=== PATIENT | female | born 1935 | race Two or more races ===

== ENCOUNTER 2019-11-05 06:35 | Emergency (ER) | payer MEDICARE, OTHER ==
[~2019-11-05] VITALS: Ht 165.1 cm; Wt 61.2 kg
--- NOTE | 2019-11-05 07:10 | NUR ---
SUN FROM HOME TO ER BED 2. AAOX4. NOT IN RESP DISTRESS. C/O R LOWER BACL PAIN SHOOTING DOWN TO LEG X 2 WEEKS. PT RATES HER PAIN 10/10 SHARP. PT NOTED WITH R LOWER LEG SWELLING AND PAIN FULL TO TOUCH. TEMP AND SENSATION IS EQUAL ON BOTH LEGS. MD WAS AT BEDSIDE FOR EVAL. IV LINE OBTAINED ON L AC 20G. BLOOD DRAWN AND GIVEN TO SERGEANT AT ARMS AT BEDSIDE. URINE ALSO COLLECTED. EKG DONE BY EMT
--- NOTE | 2019-11-05 07:16 | NUR ---
RADIOLOGY CALLED FOR VASCULAR US TECH
[2019-11-05 07:22] LABS: BASOPHILS # (AUTO) 0.1 /CMM (0.0-0.2); BASOPHILS % (AUTO) 0.7 % (0.0-2.0); EOSINOPHILS % (AUTO) 1.4 % (0.0-6.0); HEMATOCRIT 43 % (33-45); HEMOGLOBIN 14.4 g/dL (11.5-14.8); LYMPHOCYTES # (AUTO) 1.1 /CMM (0.8-4.8); LYMPHOCYTES % (AUTO) 10.8 % (20.0-44.0); MEAN CORPUSCULAR HGB CONC 34 g/dl (31.0-36.0); MEAN CORPUSCULAR VOLUME 89 fL (82-100); MONOCYTES # (AUTO) 0.6 /CMM (0.1-1.30); MONOCYTES % (AUTO) 6.5 % (2.0-12.0); NEUTROPHILS # (AUTO) 7.9 /CMM (1.8-8.9); NEUTROPHILS % (AUTO) 80.6 % (43.0-81.0); PLATELET COUNT (AUTO) 323 /CMM (150-450); WHITE BLOOD COUNT (AUTO) 9.8 K/uL (4.3-11.0)
--- NOTE | 2019-11-05 07:23 | NUR ---
XRAY AT BEDSIDE.
[2019-11-05 07:26] LABS: APPEARANCE,URINE CLEAR (CLEAR); BILIRUBIN,URINE NEGATIVE (NEGATIVE); BLOOD, URINE TRACE Ery/uL (NEGATIVE); COLOR,URINE YELLOW (YELLOW); KETONES,URINE NEGATIVE (NEGATIVE); LEUKOCYTE ESTERASE ,URINE NEGATIVE (NEGATIVE); NITRITE, URINE NEGATIVE (NEGATIVE); PH,URINE 6.5 (5.0-8.0); PROTEIN,URINE NEGATIVE (NEGATIVE); UGLUCOSE NEGATIVE (NEGATIVE); UROBILINOGEN,URINE 0.2 EU/dL (0.2)
[2019-11-05 07:29] LABS: CALCIUM, SERUM 9.2 mg/dL (8.5-10.1); CARBON DIOXIDE 26 mmol/L (21-32); CHLORIDE 103 mmol/L (98-107); CREATININE 0.8 mg/dL (0.6-1.3); GLUCOSE 148 mg/dL (74-106); POTASSIUM 3.5 mmol/L (3.5-5.1); SODIUM SERUM 139 mmol/L (136-145); UREA NITROGEN, BLOOD 18 mg/dL (7-18)
--- NOTE | 2019-11-05 07:30 | NUR ---
PT ENDORSED TO BRII PONCE FOR AG
[2019-11-05 07:44] LABS: ALANINE AMINOTRANSFERASE 20 U/L (12-78); ALKALINE PHOSPHATASE 105 U/L (46-116); ASPARTATE AMINOTRANSFERASE 12 U/L (15-37); B-TYPE NATRIURETIC PEPTIDE 45 PG/ML (0-125); BILIRUBIN,TOTAL 0.3 mg/dL (0.2-1.0); TOTAL PROTEIN, SERUM 7.5 g/dL (6.4-8.2)
[2019-11-05] MEDS ORDERED: ACETAMINOPHEN 325 MG TABLET ONE (07:45)
[2019-11-05] MEDS ORDERED: KETOROLAC TROMETHAMINE 15 MG/ML VIAL ONE (07:45)
[2019-11-05 07:50] LABS: BACTERIA,URINE Rare /HPF (None Seen); RBC,URINE 0-2 /HPF (0-2); SQUAMOUS EPITHELIAL CELL,UR Rare /HPF (None Seen)
[2019-11-05] MEDS ORDERED: KETOROLAC TROMETHAMINE INJ 30 MG/ML VIAL IV ONE (08:00)
[2019-11-05] MEDS ORDERED: ACETAMINOPHEN 325 MG TABLET PO ONE (08:00)
--- NOTE | 2019-11-05 08:04 | NUR ---
US TECH AT BEDSIDE
--- NOTE | 2019-11-05 08:54 | NUR ---
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
--- NOTE | 2019-11-05 09:29 | NUR ---
IV removed. Catheter intact and site benign. Pressure and 4x4 applied to site. No bleeding noted. Patient discharged to home, picked up by son, in stable condition. Written and verbal after care instructions given. Patient and son verbalizes understanding of instruction.
[2019-11-05 09:30] VITALS: BP 147/72
== END 2019-11-05 09:34 | disposition home or self-care (01) ==
LOC: ER 06:38
DX: M54.41 Lumbago with sciatica, right side (principal); R60.0 Localized edema; I10 Essential (primary) hypertension; E78.5 Hyperlipidemia, unspecified
CPT/HCPCS: 36415; 71045; 80053; 81001; 83880; 84484; 85025; 93005; 93970; 96374; 99285; J1885; 81000-TC